=== PATIENT | male | born 1980 | race Caucasian/White ===

== ENCOUNTER 2019-07-03 14:44 | Outpatient (CLI) | payer BC ==
--- NOTE | 2019-07-03 16:21 | MRI ---
MRI Lower Ext Jt Lt WO Con History: Pugh neuroma Comparison: None. Findings: Bones: No fracture. No malalignment. No contusion. No stress reaction. Lisfranc interval is maintained. Ligaments: Lisfranc ligament is intact. Soft tissues: Mild intermetatarsal bursitis between the second and third metatarsal heads. No evidenc e for perineural fibrosis. Tendons: No significant tenosynovitis. Muscles: Muscle signal and bulk is normal. Impression: Mild-moderate intermetatarsal bursitis between the second-third metatarsal heads. No evid ence for perineural fibrosis.
== END 2019-07-03 14:45 | disposition home or self-care (01) ==
LOC: SCSMRI 14:44
PROVIDERS: ATTEND Podiatrist Foot & Ankle Surgery
DX: D36.10 Benign neoplasm of peripheral nerves and autonomic nervous system, unspecified (principal)